=== PATIENT | male | born 1950 | race Caucasian/White ===

== ENCOUNTER 2019-02-13 11:00 | Outpatient (RCR) | payer SELFPAY | END 2019-03-15 00:01 | LOC: CR 11:00 | PROVIDERS: Family Provider Emergency Medicine Emergency Medical Services; Visit Provider Emergency Medicine Emergency Medical Services | DX: I25.10 Atherosclerotic heart disease of native coronary artery without angina pectoris (principal) ==

== ENCOUNTER 2019-03-23 11:24 | Outpatient (RCR) | payer SELFPAY | END 2019-04-15 23:59 | disposition home or self-care (01) | LOC: CR 11:24 | PROVIDERS: Family Provider Emergency Medicine Emergency Medical Services; PCP Emergency Medicine Emergency Medical Services; Referring Provider Emergency Medicine Emergency Medical Services; Visit Provider Emergency Medicine Emergency Medical Services | DX: Z76.89 Persons encountering health services in other specified circumstances (principal) ==